=== PATIENT | female | born 1930 | race Caucasian/White ===

== ENCOUNTER 2018-01-30 19:53 | Emergency (ER) | payer MEDICARE, OTHER ==
[2018-01-30] MEDS: SOD CHLORIDE 0.9% 1,000 ML IV (20:49)
[2018-01-30] MEDS: ONDANSETRON 4 MG INJ IV (20:50)
[2018-01-30] MEDS: FAMOTIDINE 20 MG INJ IV (20:50)
[2018-01-30 20:53] LABS: ADD MAN DIFF? NO
[2018-01-30 20:56] LABS: WHITE BLOOD COUNT 8.8 10^3/ul (4.8-10.8)
[2018-01-30 20:56] LABS: ABNORMAL IP MESSAGE 1; HEMATOCRIT 36.1 % (37.0-47.0); HEMOGLOBIN 11.8 g/dl (12.0-16.0); MEAN CORPUSCULAR HEMOGLOBIN 27.9 pg (29.0-33.0); MEAN CORPUSCULAR HGB CONC 32.7 g/dl (32.0-37.0); MEAN CORPUSCULAR VOLUME 85.3 fl (82.0-101.0); MEAN PLATELET VOLUME 10.1 fl (7.4-10.4); PLATELET COUNT 227 10^3/UL (140-415); RED BLOOD COUNT 4.23 10^6/ul (4.20-5.40); RED CELL DISTRIBUTION WIDTH 15.9 % (11.5-14.5)
[2018-01-30 21:00] LABS: POSITIVE DIFF @See below
[2018-01-30 21:20] LABS: ALANINE AMINOTRANSFERASE 23 IU/L (13-69); ALBUMIN 3.6 g/dl (3.3-4.9); ALBUMIN/GLOBULIN RATIO 0.87; ALKALINE PHOSPHATASE 67 IU/L (42-121); ANION GAP 12 (8-16); ASPARTATE AMINO TRANSFERASE 27 IU/L (15-46); BILIRUBIN,INDIRECT 0.4 mg/dl (0-1.1); BILIRUBIN,TOTAL 0.4 mg/dl (0.2-1.3); BLOOD UREA NITROGEN 13 mg/dl (7-20); CALCIUM 9.4 mg/dl (8.4-10.2); CARBON DIOXIDE 35 mmol/L (21-31); CHLORIDE 92 mmol/L (97-110); CREATININE 0.74 mg/dl (0.44-1.00); GLUCOSE 132 mg/dl (70-220); LIPASE 84 U/L (23-300); POTASSIUM 3.5 mmol/L (3.5-5.1); SODIUM 135 mmol/L (135-144); TOTAL PROTEIN 7.7 g/dl (6.1-8.1)
[2018-01-30 21:43] LABS: BAND NEUTROPHILS #M 0.3 10^3/ul (0.0-0.6); BAND NEUTROPHILS % (M) 4 % (0-4); EOSINOPHILS % (M) 2 % (0-7); LYMPHOCYTES #M 3.6 10^3/ul (0.8-2.9); LYMPHOCYTES % (M) 42 % (15-51); MONOCYTE #M 1.4 10^3/ul (0.3-0.9); MONOCYTES % (M) 16 % (0-11); MYELOCYTES #M 0.4 10^3/ul (0.0-0.0); MYELOCYTES % (M) 5 % (0-0); PLATELET ESTIMATE NORMAL; POLYCHROMASIA 1+ (0-0); SEG NEUT #M 2.8 10^3/ul (1.6-7.5); SEGMENTED NEUTROPHILS (M) % 31 % (39-77); SMUDGE%M 2 % (0-0)
[2018-01-30 22:58] LABS: ADD UMIC YES; UR ASCORBIC ACID NEGATIVE (NEGATIVE); UR BILIRUBIN (Dip) NEGATIVE (NEGATIVE); UR BLOOD (Dip) 2+ mg/dL (NEGATIVE); UR CLARITY SLIGHTLY CLOUDY (CLEAR); UR COLOR YELLOW (YELLOW); UR GLUCOSE (Dip) NEGATIVE (NEGATIVE); UR KETONES (Dip) NEGATIVE (NEGATIVE); UR LEUKOCYTE ESTERASE (Dip) NEGATIVE Leu/ul (NEGATIVE); UR NITRITE (Dip) NEGATIVE (NEGATIVE); UR RBC 33 /HPF (0-5); UR SPECIFIC GRAVITY (Dip) 1.013 (1.003-1.030); UR TOTAL PROTEIN (Dip) NEGATIVE (NEGATIVE); UR UROBILINOGEN (Dip) NEGATIVE (NEGATIVE); UR WBC 2 /HPF (0-5)
== END 2018-01-30 23:43 | disposition home or self-care (01) ==
LOC: E/R 19:53
DX: E86.0 Dehydration (principal); I10 Essential (primary) hypertension; J45.909 Unspecified asthma, uncomplicated; Z96.653 Presence of artificial knee joint, bilateral; Z79.82 Long term (current) use of aspirin
CPT/HCPCS: 36415; 71045; 80053; 81001; 83690; 85025; 96374; 96375; 99284-25

== ENCOUNTER 2018-04-10 19:17 | Inpatient (IN) | payer MEDICARE, OTHER ==
[2018-04-10] MEDS: ONDANSETRON 4 MG INJ IV (20:10)
[2018-04-10 20:16] LABS: ADD MAN DIFF? NO
[2018-04-10 20:18] LABS: BASOPHIL # 0.1 10^3/ul (0.0-0.1); BASOPHILS % 0.7 % (0.0-2.0); EOSINOPHILS # 0.1 10^3/ul (0.0-0.5); HEMATOCRIT 33.6 % (37.0-47.0); HEMOGLOBIN 11.6 g/dl (12.0-16.0); IMMATURE GRANS #M 0.04 10^3/ul; IMMATURE GRANS % (M) 0.6 %; LYMPHOCYTES # 1.8 10^3/ul (0.8-2.9); LYMPHOCYTES % 26.2 % (15.0-51.0); MEAN CORPUSCULAR HEMOGLOBIN 28.5 pg (29.0-33.0); MEAN CORPUSCULAR HGB CONC 34.5 g/dl (32.0-37.0); MEAN CORPUSCULAR VOLUME 82.6 fl (82.0-101.0); MEAN PLATELET VOLUME 9.5 fl (7.4-10.4); MONOCYTE # 1.2 10^3/ul (0.3-0.9); MONOCYTES % 16.8 % (0.0-11.0); NEUTROPHIL # 3.8 10^3/ul (1.6-7.5); NEUTROPHILS % 54.7 % (39.0-77.0); PLATELET COUNT 229 10^3/UL (140-415); RED BLOOD COUNT 4.07 10^6/ul (4.20-5.40); RED CELL DISTRIBUTION WIDTH 15.9 % (11.5-14.5)
[2018-04-10 20:39] LABS: INR 1.09; PROTIME 14.2 Sec (11.9-14.9); PT RATIO 1.1
[2018-04-10 20:45] LABS: ALANINE AMINOTRANSFERASE 18 IU/L (13-69); ALBUMIN 3.7 g/dl (3.3-4.9); ALBUMIN/GLOBULIN RATIO 0.97; ALKALINE PHOSPHATASE 66 IU/L (42-121); ANION GAP 17 (8-16); ASPARTATE AMINO TRANSFERASE 28 IU/L (15-46); BILIRUBIN,INDIRECT 0.8 mg/dl (0-1.1); BILIRUBIN,TOTAL 0.8 mg/dl (0.2-1.3); BLOOD UREA NITROGEN 7 mg/dl (7-20); CALCIUM 8.8 mg/dl (8.4-10.2); CARBON DIOXIDE 27 mmol/L (21-31); CHLORIDE 80 mmol/L (97-110); CREATININE 0.64 mg/dl (0.44-1.00); GLUCOSE 127 mg/dl (70-220); LIPASE 70 U/L (23-300); POTASSIUM 3.4 mmol/L (3.5-5.1); SODIUM 121 mmol/L (135-144); TOTAL PROTEIN 7.5 g/dl (6.1-8.1)
[2018-04-10 20:57] LABS: TROPONIN-I < 0.010 ng/ml (0.000-0.120)
[2018-04-10 20:58] LABS: ADD UMIC YES; UR ASCORBIC ACID NEGATIVE (NEGATIVE); UR BILIRUBIN (Dip) NEGATIVE (NEGATIVE); UR BLOOD (Dip) 2+ mg/dL (NEGATIVE); UR CLARITY CLEAR (CLEAR); UR COLOR STRAW (YELLOW); UR GLUCOSE (Dip) NEGATIVE (NEGATIVE); UR KETONES (Dip) NEGATIVE (NEGATIVE); UR LEUKOCYTE ESTERASE (Dip) NEGATIVE Leu/ul (NEGATIVE); UR NITRITE (Dip) NEGATIVE (NEGATIVE); UR RBC 4 /HPF (0-5); UR SPECIFIC GRAVITY (Dip) 1.004 (1.003-1.030); UR TOTAL PROTEIN (Dip) NEGATIVE (NEGATIVE); UR UROBILINOGEN (Dip) NEGATIVE (NEGATIVE); UR WBC 1 /HPF (0-5)
[2018-04-10] MEDS: SOD CHLORIDE 0.9% 500 ML IV (21:05)
[2018-04-11] MEDS ORDERED: NACL 0.9% 3 ML SYG IV
[2018-04-11] MEDS ORDERED: DOCUSATE SODIUM 100 MG CAP PO
[2018-04-11] MEDS ORDERED: BISACODYL (EC) 5 MG TAB PO
[2018-04-11] MEDS: SOD CHLORIDE 0.9% 1,000 ML IV ×2 (00:13→20:29)
[2018-04-11 01:04] LABS: ANION GAP 11 (8-16); BLOOD UREA NITROGEN 6 mg/dl (7-20); CALCIUM 8.8 mg/dl (8.4-10.2); CARBON DIOXIDE 29 mmol/L (21-31); CHLORIDE 86 mmol/L (97-110); CREATININE 0.61 mg/dl (0.44-1.00); GLUCOSE 111 mg/dl (70-220); POTASSIUM 3.1 mmol/L (3.5-5.1); SODIUM 123 mmol/L (135-144)
[2018-04-11 01:05] LABS: MAGNESIUM 1.4 mg/dl (1.7-2.5)
[2018-04-11 01:09] LABS: OSMOLALITY 241 mOsm/kg (280-295)
[2018-04-11 01:55] LABS: SODIUM,URINE RANDOM 35 mmol/L (30-90)
[2018-04-11 02:43] LABS: OSMOLALITY,URINE 96 mOsm/kg (250-1200)
[2018-04-11] MEDS ORDERED: MAGNESIUM SULFATE 3 GM in DEXTROSE 5% 100 ML IVPB (04:30)
[2018-04-11] MEDS: MAGNESIUM SULFATE 1 GM/D5W 100 ML IVPB ×3 (05:10→07:22)
[2018-04-11 05:20] LABS: ADD MAN DIFF? NO
[2018-04-11 05:22] LABS: ABNORMAL IP MESSAGE 1; BASOPHIL # 0.1 10^3/ul (0.0-0.1); BASOPHILS % 0.9 % (0.0-2.0); EOSINOPHILS # 0.2 10^3/ul (0.0-0.5); EOSINOPHILS % 3.1 % (0.0-7.0); HEMATOCRIT 31.7 % (37.0-47.0); HEMOGLOBIN 10.9 g/dl (12.0-16.0); IMMATURE GRANS #M 0.03 10^3/ul; IMMATURE GRANS % (M) 0.4 %; LYMPHOCYTES # 2.6 10^3/ul (0.8-2.9); MEAN CORPUSCULAR HEMOGLOBIN 28.5 pg (29.0-33.0); MEAN CORPUSCULAR HGB CONC 34.4 g/dl (32.0-37.0); MEAN PLATELET VOLUME 9.5 fl (7.4-10.4); MONOCYTE # 1.6 10^3/ul (0.3-0.9); NEUTROPHIL # 2.4 10^3/ul (1.6-7.5); NEUTROPHILS % 34.6 % (39.0-77.0); PLATELET COUNT 211 10^3/UL (140-415); RED BLOOD COUNT 3.82 10^6/ul (4.20-5.40); RED CELL DISTRIBUTION WIDTH 16.3 % (11.5-14.5)
[2018-04-11 05:22] LABS: WHITE BLOOD COUNT 6.9 10^3/ul (4.8-10.8)
[2018-04-11 05:25] LABS: POSITIVE DIFF @See below
[2018-04-11 05:41] LABS: HEMOGLOBIN A1C 5.9 % (0-5.9)
[2018-04-11 05:50] LABS: ALANINE AMINOTRANSFERASE 23 IU/L (13-69); ALBUMIN 3.2 g/dl (3.3-4.9); ALBUMIN/GLOBULIN RATIO 0.91; ALKALINE PHOSPHATASE 50 IU/L (42-121); ANION GAP 12 (8-16); ASPARTATE AMINO TRANSFERASE 28 IU/L (15-46); BILIRUBIN,INDIRECT 0.6 mg/dl (0-1.1); BILIRUBIN,TOTAL 0.6 mg/dl (0.2-1.3); BLOOD UREA NITROGEN 5 mg/dl (7-20); CALCIUM 8.8 mg/dl (8.4-10.2); CARBON DIOXIDE 28 mmol/L (21-31); CHLORIDE 90 mmol/L (97-110); CHOL/HDL RATIO 2.1 RATIO; CHOLESTEROL 90 mg/dl (100-200); CREATININE 0.61 mg/dl (0.44-1.00); GLUCOSE 99 mg/dl (70-220); HDL CHOLESTEROL 41 mg/dl (33-92); LDL CHOLESTEROL,CALCULATED 38 mg/dl; MAGNESIUM 1.4 mg/dl (1.7-2.5); POTASSIUM 3.7 mmol/L (3.5-5.1); SODIUM 126 mmol/L (135-144); TOTAL PROTEIN 6.7 g/dl (6.1-8.1); TRIGLYCERIDES 57 mg/dl (0-149)
[2018-04-11] MEDS ORDERED: ALBUTEROL HFA 8 GM INHALER INH (07:30)
[2018-04-11] MEDS: DEXTROSE 5% 500 ML IV (08:36)
[2018-04-11] MEDS: predniSONE 5 MG TAB PO (08:43)
[2018-04-11] MEDS: ASPIRIN (EC) 81 MG TAB PO (08:43)
[2018-04-11] MEDS: FERROUS SULFATE (EC) 325 MG TAB PO ×2 (08:43→20:29)
[2018-04-11] MEDS: FOLIC ACID 1 MG TAB PO (08:43)
[2018-04-11] MEDS ORDERED: BECLOMETHASONE DIP INH (09:00)
[2018-04-11 09:58] LABS: ANION GAP 13 (8-16); BLOOD UREA NITROGEN 5 mg/dl (7-20); CALCIUM 8.6 mg/dl (8.4-10.2); CARBON DIOXIDE 27 mmol/L (21-31); CHLORIDE 91 mmol/L (97-110); GLUCOSE 117 mg/dl (70-220); POTASSIUM 3.5 mmol/L (3.5-5.1); SODIUM 127 mmol/L (135-144)
[2018-04-11 12:23] LABS: ANION GAP 12 (8-16); BLOOD UREA NITROGEN 5 mg/dl (7-20); CALCIUM 8.3 mg/dl (8.4-10.2); CARBON DIOXIDE 26 mmol/L (21-31); CHLORIDE 91 mmol/L (97-110); GLUCOSE 106 mg/dl (70-220); POTASSIUM 3.4 mmol/L (3.5-5.1); SODIUM 126 mmol/L (135-144)
[2018-04-11] MEDS: MOMETASONE 0.24 GM INHALER INH (12:32)
[2018-04-11] MEDS: POTASSIUM CHLORIDE (SR) 20 MEQ TAB PO ×2 (14:03)
[2018-04-11 17:12] LABS: ANION GAP 13 (8-16); BLOOD UREA NITROGEN 5 mg/dl (7-20); CALCIUM 8.1 mg/dl (8.4-10.2); CARBON DIOXIDE 27 mmol/L (21-31); CHLORIDE 93 mmol/L (97-110); GLUCOSE 131 mg/dl (70-220); POTASSIUM 4.1 mmol/L (3.5-5.1); SODIUM 129 mmol/L (135-144)
[2018-04-11] MEDS: ATORVASTATIN 10 MG TAB PO (20:29)
[2018-04-11 20:42] LABS: ANION GAP 12 (8-16); BLOOD UREA NITROGEN 5 mg/dl (7-20); CALCIUM 7.9 mg/dl (8.4-10.2); CARBON DIOXIDE 25 mmol/L (21-31); CHLORIDE 94 mmol/L (97-110); CREATININE 0.63 mg/dl (0.44-1.00); GLUCOSE 154 mg/dl (70-220); POTASSIUM 4.4 mmol/L (3.5-5.1); SODIUM 127 mmol/L (135-144)
[2018-04-12 01:09] LABS: ANION GAP 9 (8-16); BLOOD UREA NITROGEN 5 mg/dl (7-20); CALCIUM 7.9 mg/dl (8.4-10.2); CARBON DIOXIDE 25 mmol/L (21-31); CHLORIDE 99 mmol/L (97-110); CREATININE 0.56 mg/dl (0.44-1.00); GLUCOSE 99 mg/dl (70-220); POTASSIUM 4.2 mmol/L (3.5-5.1); SODIUM 129 mmol/L (135-144)
[2018-04-12] MEDS: ACETAMINOPHEN 325 MG TAB PO (04:54)
[2018-04-12] MEDS: IBUPROFEN 400 MG TAB PO (06:05)
[2018-04-12 06:42] LABS: ANION GAP 12 (8-16); BLOOD UREA NITROGEN 4 mg/dl (7-20); CALCIUM 8.1 mg/dl (8.4-10.2); CARBON DIOXIDE 25 mmol/L (21-31); CHLORIDE 101 mmol/L (97-110); CREATININE 0.55 mg/dl (0.44-1.00); GLUCOSE 94 mg/dl (70-220); POTASSIUM 4.1 mmol/L (3.5-5.1); SODIUM 134 mmol/L (135-144)
[2018-04-12] MEDS: MOMETASONE 0.24 GM INHALER INH (09:00)
[2018-04-12 09:30] LABS: ANION GAP 12 (8-16); BLOOD UREA NITROGEN 5 mg/dl (7-20); CALCIUM 8.1 mg/dl (8.4-10.2); CARBON DIOXIDE 28 mmol/L (21-31); CHLORIDE 100 mmol/L (97-110); CREATININE 0.61 mg/dl (0.44-1.00); GLUCOSE 97 mg/dl (70-220); POTASSIUM 3.8 mmol/L (3.5-5.1); SODIUM 136 mmol/L (135-144)
[2018-04-12] MEDS: ASPIRIN (EC) 81 MG TAB PO (10:39)
[2018-04-12] MEDS: FERROUS SULFATE (EC) 325 MG TAB PO (10:39)
[2018-04-12] MEDS: predniSONE 5 MG TAB PO (10:39)
[2018-04-12] MEDS: FOLIC ACID 1 MG TAB PO (10:39)
== END 2018-04-12 11:15 | disposition home or self-care (01) | DRG 641 ==
LOC: E/R 19:17 → TEL 23:40 → PP2 04-11 16:45
DX: E87.1 Hypo-osmolality and hyponatremia (principal); E86.1 Hypovolemia; M06.9 Rheumatoid arthritis, unspecified; I10 Essential (primary) hypertension; E78.5 Hyperlipidemia, unspecified; J45.909 Unspecified asthma, uncomplicated; R11.10 Vomiting, unspecified; M81.0 Age-related osteoporosis without current pathological fracture; K44.9 Diaphragmatic hernia without obstruction or gangrene; Z96.653 Presence of artificial knee joint, bilateral; Z90.49 Acquired absence of other specified parts of digestive tract
CPT/HCPCS: 36415; 74176; 80048; 80053; 80061; 81001; 82533; 83036; 83690; 83735; 83930; 83935; 84300; 84443; 84484; 84588; 85025; 85610; 93005; 96374; 99285-25

== ENCOUNTER 2019-01-09 04:55 | Inpatient (IN) | payer MEDICARE, OTHER ==
[2019-01-09] MEDS: ONDANSETRON 4 MG INJ IV (06:04)
[2019-01-09] MEDS: SOD CHLORIDE 0.9% 1,000 ML IV (06:04)
[2019-01-09 06:32] LABS: WHITE BLOOD COUNT 24.9 10^3/ul (4.8-10.8)
[2019-01-09 06:32] LABS: ABNORMAL IP MESSAGE 1; HEMATOCRIT 33.3 % (37.0-47.0); HEMOGLOBIN 11.9 g/dl (12.0-16.0); MEAN CORPUSCULAR HEMOGLOBIN 31.2 pg (29.0-33.0); MEAN CORPUSCULAR HGB CONC 35.7 g/dl (32.0-37.0); MEAN CORPUSCULAR VOLUME 87.4 fl (82.0-101.0); PLATELET COUNT 220 10^3/UL (140-415); RED BLOOD COUNT 3.81 10^6/ul (4.20-5.40); RED CELL DISTRIBUTION WIDTH 13.3 % (11.5-14.5)
[2019-01-09 06:33] LABS: ADD MAN DIFF? YES; POSITIVE DIFF @See below
[2019-01-09 06:36] LABS: ALANINE AMINOTRANSFERASE 54 IU/L (13-69); ALBUMIN 3.2 g/dl (3.3-4.9); ALKALINE PHOSPHATASE 152 IU/L (42-121); ANION GAP 14 (5-13); ASPARTATE AMINO TRANSFERASE 35 IU/L (15-46); BILIRUBIN,INDIRECT 0.8 mg/dl (0-1.1); BILIRUBIN,TOTAL 0.8 mg/dl (0.2-1.3); BLOOD UREA NITROGEN 66 mg/dl (7-20); CALCIUM 7.5 mg/dl (8.4-10.2); CARBON DIOXIDE 24 mmol/L (21-31); CHLORIDE 85 mmol/L (97-110); GLUCOSE 96 mg/dl (70-220); LIPASE 110 U/L (23-300); POTASSIUM 3.9 mmol/L (3.5-5.1); SODIUM 123 mmol/L (135-144); TOTAL PROTEIN 7.2 g/dl (6.1-8.1)
[2019-01-09 07:04] LABS: CREATININE 1.85 mg/dl (0.44-1.00)
[2019-01-09 07:08] LABS: ADD UMIC YES; UR ASCORBIC ACID NEGATIVE (NEGATIVE); UR BILIRUBIN (Dip) NEGATIVE (NEGATIVE); UR BLOOD (Dip) 1+ mg/dL (NEGATIVE); UR CLARITY CLEAR (CLEAR); UR COLOR YELLOW (YELLOW); UR GLUCOSE (Dip) NEGATIVE (NEGATIVE); UR KETONES (Dip) NEGATIVE (NEGATIVE); UR LEUKOCYTE ESTERASE (Dip) NEGATIVE Leu/ul (NEGATIVE); UR NITRITE (Dip) NEGATIVE (NEGATIVE); UR RBC 1 /HPF (0-5); UR SPECIFIC GRAVITY (Dip) 1.009 (1.003-1.030); UR TOTAL PROTEIN (Dip) NEGATIVE (NEGATIVE); UR UROBILINOGEN (Dip) NEGATIVE (NEGATIVE); UR WBC 1 /HPF (0-5)
[2019-01-09] MEDS: SODIUM CHLORIDE 0.9% 1L BAG IV* ×2 (07:46→07:47)
[2019-01-09] MEDS: CEFEPIME 2GM/50 ML (PMX) 50 ML IVPB (07:47)
[2019-01-09] MEDS: VANCOMYCIN 1 GM (PMX) 250 ML IVPB (08:17)
[2019-01-09 08:44] LABS: INR 0.95; PROTIME 12.8 Sec (11.9-14.9)
[2019-01-09 08:45] LABS: PARTIAL THROMBOPLASTIN TIME 26.4 Sec (23.0-35.0)
[2019-01-09] MEDS: HYDROCORTISONE 100 MG INJ IV (09:00)
[2019-01-09 09:08] LABS: LACTIC ACID 2.3 mmol/L (0.5-2.0)
[2019-01-09 09:14] LABS: BAND NEUTROPHILS #M 1.9 10^3/ul (0.0-0.6); BAND NEUTROPHILS % (M) 8 % (0-4); BURR CELLS 2+ (0-0); LYMPHOCYTES #M 0.9 10^3/ul (0.8-2.9); LYMPHOCYTES % (M) 4 % (15-51); MONOCYTE #M 1.9 10^3/ul (0.3-0.9); MONOCYTES % (M) 8 % (0-11); PLATELET ESTIMATE NORMAL; POIKILOCYTOSIS 3+ (0-0); POLYCHROMASIA 1+ (0-0); SEG NEUT #M 20.4 10^3/ul (1.6-7.5); SEGMENTED NEUTROPHILS (M) % 80 % (39-77); SMUDGE%M 44 % (0-0)
[2019-01-09 09:38] LABS: TROPONIN-I 0.021 ng/ml (0.000-0.120)
[2019-01-09] MEDS ORDERED: ONDANSETRON 4 MG INJ IV (10:00)
[2019-01-09] MEDS ORDERED: ACETAMINOPHEN 325 MG TAB PO ×2 (10:00→13:30)
[2019-01-09] MEDS ORDERED: MAGNESIUM HYDROXIDE 30ML CUP PO (13:30)
[2019-01-09] MEDS ORDERED: NACL 0.9% 3 ML SYG IV (13:30)
[2019-01-09] MEDS ORDERED: morphine 2 MG INJ IV (13:30)
[2019-01-09] MEDS ORDERED: hydrALAzine 20 MG INJ IV (13:30)
[2019-01-09] MEDS ORDERED: VANCOMYCIN IV PER PHARMACY XX (13:30)
[2019-01-09] MEDS ORDERED: LORAZEPAM 2 MG INJ IV (13:30)
[2019-01-09] MEDS ORDERED: ALBUTEROL/IPRATROPIUM (NEB) 3 ML AMP HHN (13:30)
[2019-01-09] MEDS ORDERED: DOCUSATE SODIUM 100 MG CAP PO (13:30)
[2019-01-09] MEDS ORDERED: HYDROCODONE/APAP (5/325) TAB PO (13:30)
[2019-01-09] MEDS ORDERED: NITROGLYCERIN (SL) 0.4 MG TAB SL (13:30)
[2019-01-09 14:06] LABS: FREE T4 (FREE THYROXINE) 2.39 ng/dl (0.85-1.93)
[2019-01-09] MEDS: PIPER-TAZO 2.25 GM (PMX) 50 ML IVPB ×2 (14:12→21:21)
[2019-01-09] MEDS: SOD CHLORIDE 0.45% 1,000 ML IV (16:42)
[2019-01-09] MEDS ORDERED: PENDING SANTYL ORDER FOR WOUND CARE XX (18:30)
[2019-01-09 20:50] LABS: LACTIC ACID 1.1 mmol/L (0.5-2.0)
[2019-01-09] MEDS: FERROUS SULFATE (EC) 325 MG TAB PO (21:21)
[2019-01-09] MEDS: HEPARIN 5,000 UNIT/1 ML VIAL SC (21:22)
[2019-01-10 01:46] LABS: LACTIC ACID 0.9 mmol/L (0.5-2.0)
[2019-01-10] MEDS: SOD CHLORIDE 0.45% 1,000 ML IV ×3 (02:29→20:00)
[2019-01-10] MEDS: PIPER-TAZO 2.25 GM (PMX) 50 ML IVPB ×3 (05:45→20:34)
[2019-01-10] MEDS: PANTOPRAZOLE (EC) 40 MG TAB PO (06:15)
[2019-01-10] MEDS: FERROUS SULFATE (EC) 325 MG TAB PO ×2 (08:04→20:34)
[2019-01-10] MEDS: ASPIRIN (EC) 81 MG TAB PO (08:04)
[2019-01-10] MEDS: FOLIC ACID 1 MG TAB PO (08:05)
[2019-01-10] MEDS: predniSONE 5 MG TAB PO (08:05)
[2019-01-10] MEDS: HEPARIN 5,000 UNIT/1 ML VIAL SC ×2 (08:10→20:36)
[2019-01-10 08:17] LABS: ADD MAN DIFF? NO
[2019-01-10 08:22] LABS: ABNORMAL IP MESSAGE 1; BASOPHILS % 0.1 % (0.0-2.0); HEMATOCRIT 29.7 % (37.0-47.0); HEMOGLOBIN 10.2 g/dl (12.0-16.0); LYMPHOCYTES # 2.2 10^3/ul (0.8-2.9); LYMPHOCYTES % 15.9 % (15.0-51.0); MEAN CORPUSCULAR HEMOGLOBIN 30.6 pg (29.0-33.0); MEAN CORPUSCULAR HGB CONC 34.3 g/dl (32.0-37.0); MEAN CORPUSCULAR VOLUME 89.2 fl (82.0-101.0); MEAN PLATELET VOLUME 10.1 fl (7.4-10.4); MONOCYTE # 1.9 10^3/ul (0.3-0.9); MONOCYTES % 13.4 % (0.0-11.0); NEUTROPHIL # 9.8 10^3/ul (1.6-7.5); NEUTROPHILS % 69.7 % (39.0-77.0); PLATELET COUNT 214 10^3/UL (140-415); RED BLOOD COUNT 3.33 10^6/ul (4.20-5.40); RED CELL DISTRIBUTION WIDTH 13.6 % (11.5-14.5)
[2019-01-10 08:30] LABS: HEMOGLOBIN A1C 5.5 % (0-5.9)
[2019-01-10 08:41] LABS: POSITIVE DIFF @See below
[2019-01-10 08:42] LABS: ANION GAP 10 (5-13); BLOOD UREA NITROGEN 36 mg/dl (7-20); CALCIUM 7.3 mg/dl (8.4-10.2); CARBON DIOXIDE 27 mmol/L (21-31); CHLORIDE 99 mmol/L (97-110); CREATININE 1.05 mg/dl (0.44-1.00); GLUCOSE 94 mg/dl (70-220); MAGNESIUM 1.8 mg/dl (1.7-2.5); PHOSPHORUS 2.6 mg/dl (2.5-4.9); SODIUM 136 mmol/L (135-144)
[2019-01-10 08:44] LABS: LACTIC ACID 1.2 mmol/L (0.5-2.0)
[2019-01-10 08:49] LABS: CHOLESTEROL 83 mg/dl (100-200)
[2019-01-10 08:49] LABS: CHOL/HDL RATIO 3.6 RATIO; HDL CHOLESTEROL 23 mg/dl (33-92); LDL CHOLESTEROL,CALCULATED 46 mg/dl; TRIGLYCERIDES 71 mg/dl (0-149)
[2019-01-10 08:54] LABS: POTASSIUM 2.7 mmol/L (3.5-5.1)
[2019-01-10] MEDS ORDERED: POTASSIUM CHLORIDE (SR) 20 MEQ TAB PO (08:58)
[2019-01-10] MEDS ORDERED: NON-FORMULARY/PATIENT OWN MED (Omeprazole* 20 MG) PO (09:00)
[2019-01-10 09:13] LABS: THYROID STIMULATING HORMONE 0.299 MIU/L (0.465-4.680)
[2019-01-10] MEDS: POTASSIUM CHLORIDE 20 MEQ POWDER FOR ORAL SOLN PO (09:18)
[2019-01-10] MEDS: VANCOMYCIN 500 MG (PMX) 100 ML IVPB (11:11)
[2019-01-10] MEDS: ONDANSETRON 4 MG INJ IV (12:28)
[2019-01-11] MEDS: PIPER-TAZO 2.25 GM (PMX) 50 ML IVPB ×3 (05:30→21:33)
[2019-01-11 06:12] LABS: ADD MAN DIFF? NO
[2019-01-11 06:14] LABS: BASOPHILS % 0.2 % (0.0-2.0); EOSINOPHILS # 0.1 10^3/ul (0.0-0.5); EOSINOPHILS % 0.8 % (0.0-7.0); HEMATOCRIT 31.1 % (37.0-47.0); HEMOGLOBIN 10.5 g/dl (12.0-16.0); LYMPHOCYTES # 3.4 10^3/ul (0.8-2.9); LYMPHOCYTES % 34.7 % (15.0-51.0); MEAN CORPUSCULAR HEMOGLOBIN 31.3 pg (29.0-33.0); MEAN CORPUSCULAR HGB CONC 33.8 g/dl (32.0-37.0); MEAN CORPUSCULAR VOLUME 92.6 fl (82.0-101.0); MEAN PLATELET VOLUME 9.8 fl (7.4-10.4); MONOCYTE # 1.4 10^3/ul (0.3-0.9); MONOCYTES % 14.1 % (0.0-11.0); NEUTROPHIL # 4.8 10^3/ul (1.6-7.5); NEUTROPHILS % 48.7 % (39.0-77.0); PLATELET COUNT 245 10^3/UL (140-415); RED BLOOD COUNT 3.36 10^6/ul (4.20-5.40)
[2019-01-11 06:14] LABS: WHITE BLOOD COUNT 9.8 10^3/ul (4.8-10.8)
[2019-01-11] MEDS: PANTOPRAZOLE (EC) 40 MG TAB PO (06:36)
[2019-01-11 06:57] LABS: ANION GAP 4 (5-13); BLOOD UREA NITROGEN 20 mg/dl (7-20); CALCIUM 7.2 mg/dl (8.4-10.2); CARBON DIOXIDE 29 mmol/L (21-31); CHLORIDE 104 mmol/L (97-110); CREATININE 0.94 mg/dl (0.44-1.00); GLUCOSE 85 mg/dl (70-220); SODIUM 137 mmol/L (135-144)
[2019-01-11] MEDS: ONDANSETRON 4 MG INJ IV (09:21)
[2019-01-11] MEDS: FERROUS SULFATE (EC) 325 MG TAB PO ×2 (09:24→21:34)
[2019-01-11] MEDS: ASPIRIN (EC) 81 MG TAB PO (09:24)
[2019-01-11] MEDS: FOLIC ACID 1 MG TAB PO (09:24)
[2019-01-11] MEDS: predniSONE 5 MG TAB PO (09:24)
[2019-01-11] MEDS: HEPARIN 5,000 UNIT/1 ML VIAL SC ×2 (09:29→21:46)
[2019-01-11] MEDS: VANCOMYCIN 500 MG (PMX) 100 ML IVPB (11:48)
[2019-01-11] MEDS: SOD CHLORIDE 0.45% 1,000 ML IV (18:01)
[2019-01-12] MEDS: PIPER-TAZO 2.25 GM (PMX) 50 ML IVPB (05:25)
[2019-01-12] MEDS: PANTOPRAZOLE (EC) 40 MG TAB PO (05:25)
[2019-01-12 06:19] LABS: WHITE BLOOD COUNT 7.9 10^3/ul (4.8-10.8)
[2019-01-12 06:19] LABS: ABNORMAL IP MESSAGE 1; HEMATOCRIT 33.1 % (37.0-47.0); MEAN CORPUSCULAR HEMOGLOBIN 30.7 pg (29.0-33.0); MEAN CORPUSCULAR HGB CONC 33.2 g/dl (32.0-37.0); MEAN CORPUSCULAR VOLUME 92.5 fl (82.0-101.0); MEAN PLATELET VOLUME 9.6 fl (7.4-10.4); PLATELET COUNT 262 10^3/UL (140-415); RED BLOOD COUNT 3.58 10^6/ul (4.20-5.40)
[2019-01-12 06:24] LABS: ADD MAN DIFF? YES; POSITIVE DIFF @See below
[2019-01-12 06:47] LABS: ANION GAP 6 (5-13); BLOOD UREA NITROGEN 13 mg/dl (7-20); CALCIUM 7.6 mg/dl (8.4-10.2); CARBON DIOXIDE 29 mmol/L (21-31); CHLORIDE 101 mmol/L (97-110); CREATININE 0.72 mg/dl (0.44-1.00); GLUCOSE 78 mg/dl (70-220); POTASSIUM 3.4 mmol/L (3.5-5.1); SODIUM 136 mmol/L (135-144)
[2019-01-12] MEDS: SOD CHLORIDE 0.45% 1,000 ML IV (07:49)
[2019-01-12] MEDS: predniSONE 5 MG TAB PO (10:09)
[2019-01-12] MEDS: FERROUS SULFATE (EC) 325 MG TAB PO (10:09)
[2019-01-12] MEDS: ASPIRIN (EC) 81 MG TAB PO (10:09)
[2019-01-12] MEDS: FOLIC ACID 1 MG TAB PO (10:09)
[2019-01-12] MEDS: HEPARIN 5,000 UNIT/1 ML VIAL SC (10:16)
[2019-01-12 10:58] LABS: ANISOCYTOSIS 1+ (0-0); BAND NEUTROPHILS % (M) 1 % (0-4); EOSINOPHILS % (M) 1 % (0-7); HYPOCHROMASIA 1+ (0-0); LYMPHOCYTES #M 2.4 10^3/ul (0.8-2.9); LYMPHOCYTES % (M) 31 % (15-51); METAMYELOCYTES #M 0.2 10^3/ul (0.0-0.0); METAMYELOCYTES %M 3 % (0-0); MICROCYTOSIS 1+ (0-0); MONOCYTE #M 0.8 10^3/ul (0.3-0.9); MONOCYTES % (M) 11 % (0-11); PLATELET ESTIMATE NORMAL; REACTIVE LYMPHOCYTES #M 0.3 10^3/ul (0.0-0.0); REACTIVE LYMPHOCYTES% (M) 4 % (0-0); SEG NEUT #M 3.9 10^3/ul (1.6-7.5); SEGMENTED NEUTROPHILS (M) % 49 % (39-77); SMUDGE%M 13 % (0-0)
[2019-01-12 11:25] LABS: VANCOMYCIN,TROUGH 6.4 ug/ml (10.0-20.0)
[2019-01-12] MEDS: VANCOMYCIN 500 MG (PMX) 100 ML IVPB (12:32)
[2019-01-13] MEDS ORDERED: VANCOMYCIN 500 MG (PMX) 100 ML IVPB
== END 2019-01-12 15:20 | disposition home or self-care (01) | DRG 194 ==
LOC: E/R 04:55 → TEL 09:47
DX: J18.9 Pneumonia, unspecified organism (principal); N17.9 Acute kidney failure, unspecified; E86.0 Dehydration; M81.0 Age-related osteoporosis without current pathological fracture; M06.9 Rheumatoid arthritis, unspecified; I10 Essential (primary) hypertension; J45.909 Unspecified asthma, uncomplicated; E78.00 Pure hypercholesterolemia, unspecified; Z96.653 Presence of artificial knee joint, bilateral; Z91.81 History of falling; Z90.49 Acquired absence of other specified parts of digestive tract
CPT/HCPCS: 36415; 71045; 80048; 80053; 80061; 80202; 81001; 83036; 83605; 83690; 83735; 84100; 84439; 84443; 84484; 85025; 85610; 85730; 87040-91; 87086; 92610; 93005; 93306; 96374; 96375; 97116; 97162; 97167; 97530; 97535; 99285-25